=== PATIENT | female | born 1940 | race Caucasian/White ===

== ENCOUNTER 2019-12-16 14:42 | Outpatient (CLI) | payer MEDICARE ==
[2019-12-16 16:45] LABS: INR 3.9 (0.8-1.2)
== END 2019-12-16 23:59 | disposition home or self-care (01) ==
LOC: LAB.WCP 14:42
PROVIDERS: ATTEND Internal Medicine
DX: I48.91 Unspecified atrial fibrillation (principal)
CPT/HCPCS: 36415; 85610

== ENCOUNTER 2019-12-30 09:51 | Outpatient (CLI) | payer MEDICARE ==
[2019-12-30 12:10] LABS: INR 1.8 (0.8-1.2); PT - PROTHROMBIN TIME 19.8 secs (9.9-12.6)
== END 2019-12-30 23:59 | disposition home or self-care (01) ==
LOC: LAB.WCP 09:51
PROVIDERS: ATTEND Internal Medicine
DX: I48.91 Unspecified atrial fibrillation (principal)
CPT/HCPCS: 36415; 85610

== ENCOUNTER 2020-01-14 12:07 | Outpatient (CLI) | payer MEDICARE ==
[2020-01-14 13:19] LABS: INR 4.3 (0.8-1.2); PT - PROTHROMBIN TIME 45.2 secs (9.9-12.6)
== END 2020-01-14 23:59 | disposition home or self-care (01) ==
LOC: LAB.WCP 12:07
PROVIDERS: ATTEND Internal Medicine
DX: I48.91 Unspecified atrial fibrillation (principal)
CPT/HCPCS: 36415; 85610

== ENCOUNTER 2020-01-28 08:00 | Outpatient (CLI) | payer MEDICARE ==
[2020-01-28 17:52] LABS: PT - PROTHROMBIN TIME 31.8 secs (9.9-12.6)
== END 2020-01-28 23:59 | disposition home or self-care (01) ==
LOC: LAB.WCP 08:00
PROVIDERS: ATTEND Internal Medicine
DX: I48.91 Unspecified atrial fibrillation (principal)
CPT/HCPCS: 36415; 85610

== ENCOUNTER 2020-02-12 07:00 | Outpatient (CLI) | payer MEDICARE ==
[2020-02-12 18:55] LABS: INR 2.8 (0.8-1.2); PT - PROTHROMBIN TIME 29.7 secs (9.9-12.6)
== END 2020-02-12 23:59 | disposition home or self-care (01) ==
LOC: LAB.WCP 07:00
PROVIDERS: ATTEND Internal Medicine
DX: I48.91 Unspecified atrial fibrillation (principal)
CPT/HCPCS: 36415; 85610

== ENCOUNTER 2020-03-03 08:00 | Outpatient (CLI) | payer MEDICARE ==
[2020-03-03 19:03] LABS: INR 3.7 (0.8-1.2); PT - PROTHROMBIN TIME 38.9 secs (9.9-12.6)
== END 2020-03-03 23:59 | disposition home or self-care (01) ==
LOC: LAB.WCP 08:00
PROVIDERS: ATTEND Internal Medicine
DX: I48.91 Unspecified atrial fibrillation (principal)
CPT/HCPCS: 36415; 85610

== ENCOUNTER 2020-03-16 01:33 | Outpatient (CLI) | payer MEDICARE ==
[2020-03-16 18:26] LABS: INR 2.9 (0.8-1.2); PT - PROTHROMBIN TIME 30.7 secs (9.9-12.6)
== END 2020-03-16 23:59 | disposition home or self-care (01) ==
LOC: LAB.WCP 01:33
PROVIDERS: ATTEND Internal Medicine
DX: I48.91 Unspecified atrial fibrillation (principal)
CPT/HCPCS: 36415; 85610

== ENCOUNTER 2023-06-13 08:40 | Outpatient (CLI) | payer MEDICARE ==
[2023-06-13 14:35] LABS: BASOPHILS % (AUTO) 0.4 %; EOSINOPHILS # (AUTO) 0.3 10^3/uL (0.0-0.7); EOSINOPHILS % (AUTO) 7.1 %; HCT - HEMATOCRIT 36.6 % (37.0-47.0); HGB - HEMOGLOBIN 11.5 g/dL (12.0-16.0); LYMPHOCYTES # (AUTO) 0.5 10^3/uL (1.5-3.5); LYMPHOCYTES % (AUTO) 11.3 %; MEAN CORPUSCULAR HEMOGLOBIN 29.9 pg (27.0-31.0); MEAN CORPUSCULAR HGB CONC 31.4 g/dL (32.0-36.0); MEAN CORPUSCULAR VOLUME 95.3 fL (81.0-99.0); MEAN PLATELET VOLUME 11.6 fL (7.9-10.8); MONOCYTES # (AUTO) 0.4 10^3/uL (0.0-1.0); MONOCYTES % (AUTO) 7.6 %; NEUTROPHILS # (AUTO) 3.5 10^3/uL (1.5-6.6); NEUTROPHILS % (AUTO) 73.2 %; PLT - PLATELET COUNT 181 10^3/uL (130-450); RED BLOOD COUNT 3.84 10^6/uL (4.20-5.40); WHITE BLOOD COUNT 4.8 x10^3/uL (4.8-10.8)
[2023-06-13 15:01] LABS: ALBUMIN 4.4 g/dL (3.2-5.5); ALBUMIN/GLOBULIN RATIO 1.7 (1.0-2.2); ALKALINE PHOSPHATASE 117 IU/L (42-121); ALT ALANINE AMINOTRANSFERASE 8 IU/L (10-60); AST ASPARTATE AMINOTRANSFERASE 12 IU/L (10-42); BUN - BLOOD UREA NITROGEN 25 mg/dL (6-20); CARBON DIOXIDE - CO2 28 mmol/L (21-32); CHLORIDE 104 mmol/L (101-111); CHOL/HDL RATIO 2.3 (<4.4); CHOLESTEROL 126 mg/dL; CREATININE 1.4 mg/dL (0.6-1.3); GFR - MDRD 36 (>89); GLUCOSE 102 mg/dL (74-104); HDL CHOLESTEROL 54 mg/dL; LDL CHOLESTEROL,CALCULATED 59 mg/dL; LDL/HDL RATIO 1.1 (<4.4); POTASSIUM 5.1 mmol/L (3.5-4.5); SODIUM 138 mmol/L (135-145); TRIGLYCERIDES 66 mg/dL (48-352); VLDL CHOLESTEROL 13 mg/dL
[2023-06-13 15:13] LABS: ESTIMATED AVERAGE GLUCOSE 108 mg/dL (70-100); HEMOGLOBIN A1c% 5.4 % (4.27-6.07)
== END 2023-06-13 08:41 | disposition home or self-care (01) ==
LOC: LAB.S 08:40
PROVIDERS: ATTEND Physician Assistant Medical
DX: I48.20 Chronic atrial fibrillation, unspecified (principal); E78.5 Hyperlipidemia, unspecified; Z13.9 Encounter for screening, unspecified; Z13.6 Encounter for screening for cardiovascular disorders
CPT/HCPCS: 36415; 80053; 80061; 83036; 83721; 85025

== ENCOUNTER 2023-06-21 08:11 | Outpatient (CLI) | payer MEDICARE ==
[2023-06-21 14:29] LABS: BASOPHILS % (AUTO) 0.7 %; EOSINOPHILS # (AUTO) 0.4 10^3/uL (0.0-0.7); EOSINOPHILS % (AUTO) 8.3 %; HCT - HEMATOCRIT 35.4 % (37.0-47.0); HGB - HEMOGLOBIN 11.1 g/dL (12.0-16.0); LYMPHOCYTES % (AUTO) 21.2 %; MEAN CORPUSCULAR HEMOGLOBIN 30.1 pg (27.0-31.0); MEAN CORPUSCULAR HGB CONC 31.4 g/dL (32.0-36.0); MEAN CORPUSCULAR VOLUME 95.9 fL (81.0-99.0); MEAN PLATELET VOLUME 11.6 fL (7.9-10.8); MONOCYTES # (AUTO) 0.4 10^3/uL (0.0-1.0); MONOCYTES % (AUTO) 8.1 %; NEUTROPHILS # (AUTO) 2.8 10^3/uL (1.5-6.6); NEUTROPHILS % (AUTO) 61.5 %; PLT - PLATELET COUNT 184 10^3/uL (130-450); RED BLOOD COUNT 3.69 10^6/uL (4.20-5.40); WHITE BLOOD COUNT 4.6 x10^3/uL (4.8-10.8)
[2023-06-21 14:49] LABS: CALCIUM 9.8 mg/dL (8.5-10.3); CREATININE 1.4 mg/dL (0.6-1.3)
== END 2023-06-21 08:12 | disposition home or self-care (01) ==
LOC: LAB.S 08:11
PROVIDERS: ATTEND Physician Assistant Medical
DX: N28.9 Disorder of kidney and ureter, unspecified (principal); D64.9 Anemia, unspecified
CPT/HCPCS: 36415; 80048; 85025

== ENCOUNTER 2023-08-23 08:53 | Outpatient (CLI) | payer MEDICARE ==
[2023-08-23 09:32] LABS: CREATININE 1.6 mg/dL (0.6-1.3)
[2023-08-23] MEDS ORDERED: DIATRIZOATE MEGLU/DIATRIZO SOD 30 ML BOTTLE PO ONE (10:23)
[2023-08-23] MEDS ORDERED: iohexoL-300 100 ML VIAL IVP ONE (10:23)
--- NOTE | 2023-08-23 14:23 | CT Report ---
PROCEDURE: CHEST W INDICATIONS: VULVAR CA CONTRAST: 80ml omni 300 TECHNIQUE: After the administration of intravenous contrast, 1 mm axial images were acquired from the pulmonary apices through the posterior costophrenic angles. Axial 5 mm soft tissue kernel reconstructions were performed as well as 8 mm axial MIP and coronal and sagittal 5 mm reformations. For radiation dose reduction, the following was used: automated exposure control, adjustment of mA and/or kV according to patient size. COMPARISON: None. FINDINGS: Image quality: Excellent. Lungs and pleura: Small consolidation in the right upper lobe. Right upper lobe volume loss. Mild hon eycombing suspected in the posterior right lower lobe. Peripheral reticular thickening. Mild cystic c hanges. Suspect right pleural apical scarring. No pneumothorax. Trace pleural fluid in the right bobo thorax adjacent to the consolidation. Mediastinum: Heart size is normal. No pericardial effusion. Aneurysmal dilatation of the descending a rock measuring 3.9 cm, (5/35). Precarinal node measuring 1 cm, (2/22). Chest wall and lower neck: Left thyroid nodule measuring 0.9 cm. No axillary or supraclavicular adeno sienna by size. Bones: No aggressive osseous abnormality. Scoliosis. Multilevel DDD. Upper Abdomen: Unremarkable. IMPRESSION: 1. No definite metastatic disease in the chest. 2. Precarinal lymph node measuring 1 cm. This could be reactive in nature. 3. Right upper lobe small consolidation. This could represent pneumonia. Comparison with more remote imaging if available would be very helpful. Recommend follow-up to resolution. 4. 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 Reviewed by: Eduardo Valentin MD on 08/23/2023 2:21 PM [facility] Approved by: Eduardo Valentin MD on 08/23/2023 2:21 PM PST Station ID: [id number]
--- NOTE | 2023-08-23 14:51 | CT Report ---
PROCEDURE: ABDOMEN/PELVIS W INDICATIONS: VULVAR CA CONTRAST: 80ml omni 300 TECHNIQUE: After the administration of oral and intravenous contrast, 5 mm thick sections acquired from the diap hragms to the symphysis. 5 mm thick coronal and sagittal reformats were acquired. For radiation dos e reduction, the following was used: automated exposure control, adjustment of mA and/or kV accordin g to patient size. COMPARISON: Same day CT chest. Outside CT abdomen pelvis not available. FINDINGS: Image quality: Excellent. Lung bases and heart: Unremarkable. Liver: No focal lesion. Punctate calcified granuloma in the left lobe. Gallbladder and biliary tree: Mild intrahepatic biliary ductal dilatation. CBD is within normal limit s. Spleen: No splenomegaly. Pancreas: No pancreatic ductal dilation. Adrenals: No adrenal nodule. Kidneys and ureters: Prominent right renal pelvis. Suspect extrarenal pelvis. No significant caliecta sis. Benign cysts in the right kidney. Larger cyst measuring 3.5 cm. A few hypodensities are too smal l to further characterize. No mass. Bowel and peritoneum: No bowel distension. No pathologic free fluid. Diverticulosis. The appendix is not identified. Lymph nodes: No central or retroperitoneal adenopathy. Vessels: Abdominal aortic aneurysm post aortoiliac stent graft repair. Largest portion measures 6 cm in diameter, (2/39). The aneurysm sac with contrast. PELVIS Reproductive organs: Uterus is absent. Nodular thickening at the left volva measuring 5 cm in length, (2/80). This measures 2.3 cm in craniocaudal dimension, (5/19). Bladder: No abnormal wall thickening, accounting for underdistention. Pelvic lymph nodes: No pelvic adenopathy by size criteria. Bones: No aggressive osseous abnormality. Levoscoliosis. Multilevel DDD. Other: No significant ventral or inguinal hernia. IMPRESSION: 1. Left vulva mass measuring 5 cm in length. 2. No metastatic disease identified. No adenopathy. 3. Abdominal aortic aneurysm post aortoiliac stent graft repair. Aneurysm sac measures 6 cm. 4. Mild intrahepatic biliary ductal dilatation. Etiology is uncertain. This could be further evaluate d with MRCP. Reviewed by: Eduardo Valentin MD on 08/23/2023 2:50 PM PST Approved by: Eduardo Valentin MD on 08/23/2023 2:50 PM PST Station ID: [id number]
== END 2023-08-23 08:54 | disposition home or self-care (01) ==
LOC: DI 08:53
PROVIDERS: ATTEND Obstetrics & Gynecology Gynecologic Oncology
DX: C51.9 Malignant neoplasm of vulva, unspecified (principal); N90.89 Other specified noninflammatory disorders of vulva and perineum; Z85.118 Personal history of other malignant neoplasm of bronchus and lung; I71.40 Abdominal aortic aneurysm, without rupture, unspecified; K83.8 Other specified diseases of biliary tract; R91.8 Other nonspecific abnormal finding of lung field
CPT/HCPCS: 36415; 71260; 74177; 82565; Q9963; Q9967

== ENCOUNTER 2024-02-21 09:12 | Outpatient (CLI) | payer MEDICARE ==
--- NOTE | 2024-02-21 22:02 | DEXA Report ---
PROCEDURE: Dexa Spine and/or Hip INDICATIONS: SCREENING FOR OSTEOPOROSIS TECHNIQUE: Dual energy x-ray absorptiometry (DXA) was performed on a [employer] System. Regions measur ed are the AP Spine, femoral neck, and if needed forearm. COMPARISON: None FINDINGS: Lumbar Spine: Bone Mineral Density: 0.862 g/cm/cm,T score: -2.6. Left Femoral Neck: Bone Mineral Density: 0.587 g/cm/cm, T score: -3.2. Left Hip: Bone Mineral Density: 0.598 g/cm/cm,T score: -3.3. (T score greater or equal to -1.0: NORMAL) (T score from -1.1 to -2.4: OSTEOPENIA) (T score less than or equal to -2.5 to: OSTEOPOROSIS) Impression: By WHO criteria, this patient has osteoporosis. Patients with diagnosis of osteoporosis or osteopenia should have regular bone mineral density assess ment. For those eligible for Medicare, routine testing is allowed once every 2 years. Testing frequ ency can be increased for patients who have rapidly progressing disease or for those who are receivin g medical therapy to restore bone mass. Reviewed by: Maximiliano Concepcion MD on 02/21/2024 10:00 PM PDT Approved by: Maximiliano Concepcion MD on 02/21/2024 10:00 PM PDT Station ID: [id number]
== END 2024-02-21 09:13 | disposition home or self-care (01) ==
LOC: DI 09:12
PROVIDERS: ATTEND Student in an Organized Health Care Education/Training Program
DX: Z13.820 Encounter for screening for osteoporosis (principal); M81.0 Age-related osteoporosis without current pathological fracture; Z78.0 Asymptomatic menopausal state